=== PATIENT | male | born 1955 | race Caucasian/White ===

== ENCOUNTER 2017-09-20 08:19 | Emergency (ER) | payer BC ==
[2017-09-20] MEDS ORDERED: METHYLPREDNISOLONE PF 125MG/VIAL IVP ONE (09:16)
[2017-09-20 09:17] LABS: HEMATOCRIT 30.3 % (42.0-52.0); HEMOGLOBIN 9.4 gm/dl (14.0-18.0); MEAN CELL VOLUME 81.2 fl (81-97); MEAN CORPUSCULAR HEMOGLOBIN 25.2 pg (27-33); MEAN PLATELET VOLUME 8.4 fl (7.4-10.4); PLATELET COUNT 441 K/uL (130-400); RED BLOOD COUNT 3.73 M/uL (4.40-5.70); RED CELL DISTRIBUTION WIDTH 14.8 % (11.5-14.5)
[2017-09-20 09:38] LABS: ALB/GLOB RATIO 1.3 (1.1-1.8); ALKALINE PHOSPHATASE 59 U/L (40-129); ALT/SGPT 7 U/L (<41); AST/SGOT 10 U/L (10.0-50.0); BLOOD UREA NITROGEN 16 mg/dL (8-23); CREATININE 0.9 mg/dL (0.7-1.2); EST GLOMERULAR FILTRATION RATE > 60 mL/min; GLUCOSE,RANDOM 190 mg/dL (74-109); TOTAL PROTEIN 7.2 g/dL (6.6-8.7)
[2017-09-20] MEDS ORDERED: FUROSEMIDE IV 20MG/2ML VIAL IVP ONE (09:42)
[2017-09-20] MEDS ORDERED: ONDANSETRON HCL IV 4 MG/2 ML VIAL IVP ONE (10:38)
--- NOTE | 2017-09-20 10:45 | Emergency Department Record ---
History of Present Illness - General Chief Complaint: Difficulty Breathing Stated Complaint: VIKY Time Seen by Provider: 09/20/17 08:43 Source: Patient Mode of Arrival: Ambulatory Limitations: No limitations - History of Present Illness Initial Comments: pt has known lung ca and is increasingly sob. it gets worse when he lays down Complaint: Cough, Shortness of breath Onset/Timin -: Days(s) Severity: Moderate Severity scale (1-10): 1 Quality: Aching Consistency: Getting worse Improves With: Oxygen Worsens With: Lying flat Known History Of: Other Associated Symptoms: Cough, Orthopnia Treatments Prior to Arrival: Bronchodilator - Related Data Home Medications Medication Instructions Recorded Confirmed Last Taken Canabis Oil 1 cap PO QPM 09/20/17 09/20/17 09/19/17 Ipratropium/Albuterol Sulfate 1 puff INH QID PRN 09/20/17 09/20/17 09/20/17 [Combivent] Allergies Allergy/AdvReac Type Severity Reaction Status Date / Time Penicillins Allergy BEHAVIORAL Verified 09/20/17 08:34 CHANGES Travel Screening - Travel/Exposure Within Last 30 Days Have you traveled within the last 30 days?: No - Travel/Exposure Within Last Year Have you traveled outside the [place] in the last year?: No - Additonal Travel Details Have you been exposed to anyone with a communicable illness?: No - Travel Symptoms Symptom Screening: None Review of Systems Reviewed: No additional complaints except as noted below Constitutional: Reports: As per HPI. Denies: Chills, Fever, Malaise, Night sweats, Weakness, Weight change Eyes: Reports: As per HPI. Denies: Eye discharge, Eye pain, Photophobia, Vision change ENT: Reports: As per HPI. Denies: Congestion, Dental pain, Ear pain, Epistaxis , Hearing loss, Throat pain Respiratory: Reports: As per HPI, Cough, Dyspnea. Denies: Hemoptysis, Stridor, Wheezes Cardiovascular: Reports: As per HPI. Denies: Arrhythmia, Chest pain, Dyspnea on exertion, Edema, Murmurs, Orthopnea, Palpitations, Paroxysmal nocturnal dyspnea, Rheumatic Fever, Syncope Endocrine: Reports: As per HPI. Denies: Fatigue, Heat or cold intolerance, Polydipsia, Polyuria Gastrointestinal: Reports: As per HPI. Denies: Abdominal pain, Constipation, Diarrhea, Hematemesis, Hematochezia, Melena, Nausea, Vomiting Genitourinary: Reports: As per HPI. Denies: Dysuria, Frequency, Hematuria, Incontinence, Retention, Testicular pain, Testicular mass, Urgency Musculoskeletal: Reports: As per HPI. Denies: Arthralgia, Back pain, Gout, Joint swelling, Myalgia, Neck pain Skin: Reports: As per HPI. Denies: Bruising, Change in color, Change in hair/ nails, Lesions, Pruritus, Rash Neurological: Reports: As per HPI. Denies: Abnormal gait, Confusion, Headache, Numbness, Paresthesias, Seizure, Tingling, Tremors, Vertigo, Weakness Psychiatric: Reports: As per HPI. Denies: Anxiety, Auditory hallucinations, Depression, Homicidal thoughts, Suicidal thoughts, Visual hallucinations Hematological/Lymphatic: Reports: As per HPI. 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 negative: External canal tenderness Nasal Exam: Normal inspection. negative: Discharge, Sinus tenderness Mouth exam: Normal external inspection, Tongue normal Teeth exam: Normal inspection. negative: Dental caries Throat exam: Normal inspection. negative: Tonsillar erythema, Tonsillar exudate - Neck Neck exam: Normal inspection, Full ROM. negative: Tenderness - Respiratory Respiratory exam: Accessory muscle use, Respiratory distress - Cardiovascular Cardiovascular Exam: Regular rate, Normal rhythm, Normal heart sounds - GI/Abdominal GI/Abdominal exam: Soft, Normal bowel sounds. negative: Tenderness - Rectal Rectal exam: Deferred - exam: Deferred - Extremities Extremities exam: Normal inspection, Full ROM, Normal capillary refill. negative: Tenderness - Back Back exam: Reports: Normal inspection, Full ROM. 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 ] Respiratory 20 26 H 28 H Rate Blood Pressure 181/94 Blood Pressure 195/118 127/98 [Left Arm] Pulse Ox 100 98 100 Medical Decision Making - Lab Data Result diagrams: 09/20/17 09:10 09/20/17 09:10 Lab Results 09/20/17 09/20/17 09/20/17 Range/Units 09:10 09:10 09:16 WBC 7.0 (4.2-12.2) K/uL RBC 3.73 L (4.40-5.70) M/uL Hgb 9.4 L (14.0-18.0) gm/dl Hct 30.3 L (42.0-52.0) % MCV 81.2 (81-97) fl MCH 25.2 L (27-33) pg MCHC 31.0 L (32-36) g/dl RDW 14.8 H (11.5-14.5) % Plt Count 441 H (130-400) K/uL MPV 8.4 (7.4-10.4) fl Neutrophils % 83.0 H (47-80) % Band Neutrophils % 0.0 (0-5) % Eosinophils % Not Reportable Basophils % Not Reportable Lymphocytes 11.0 L (16-45) % Monocytes 4.0 (0-9) % Basophils 0.0 (0-6) % Eosinophil Count 2.0 (0-6) % Sodium 135 L (136-145) mmol/L Potassium 4.2 (3.4-4.5) mmol/L Chloride 91 L (98-107) mmol/L Carbon Dioxide 21.0 L (22-29) mmol/L Anion Gap 23.0 H (7-16) BUN 16 (8-23) mg/dL Creatinine 0.9 (0.7-1.2) mg/dL Estimated GFR > 60 mL/min Random Glucose 190 H (74-109) mg/dL Calcium 9.8 (8.8-10.2) mg/dL Total Bilirubin 0.60 (0.2-1.0) mg/dL AST 10 (10.0-50.0) U/L ALT 7 (<41) U/L Alkaline Phosphatase 59 (40-129) U/L Troponin T < 0.010 (0-0.010) ng/mL NT-Pro-B Natriuret Pep 7078.00 H (<125) pg/mL Total Protein 7.2 (6.6-8.7) g/dL Albumin 4.0 (4.0-5.0) g/dL Globulin 3.2 (1.4-4.8) gm/dL Albumin/Globulin Ratio 1.3 (1.1-1.8) Disposition Disposition: Transfer Clinical Impression: Airway obstruction Lung cancer Qualifiers: Laterality: right Lung location: unspecified part of lung Qualified Code(s): C34.91 - Malignant neoplasm of unspecified part of right bronchus or lung Disposition: Acute Care Hospital Transfer Transfer To: formerly [facility] Reason For Transfer: pts physicians, airway obstruction Accepting Physician: rusty Time Discussed w/Accepting Physician: 12:10 Forms: Patient Portal Access Quality - Quality Measures Quality Measures: N/A - Blood Pressure Screening Does Patient Have Any of the Following: No Blood Pressure Classification: Hypertensive Reading Systolic Measurement: 181 Diastolic Measurement: 94 Screening for High Blood Pressure: < First Hypertensive BP, F/U Documented > [ [id number]] First Hypertensive Follow-up Interventions: Follow-up with rescreen GT 1 day and LT 4 weeks.
--- NOTE | 2017-09-21 10:25 | CT ANGIOGRAM REPORT ---
DATE: 09/20/2017 at 10:18 a.m. EXAM: CT ANGIOGRAM OF THE CHEST FOR PULMONARY EMBOLUS WITH POSTPROCESSING. HISTORY: Shortness of breath. Possible pulmonary embolus. TECHNIQUE: CTA of the chest performed following the intravenous administration of 60 mL of Omnipaque 350 as the intravenous contrast. Postprocessing on an independent work station was performed with multiple 3D MIP series obtained. COMPARISON: None. FINDINGS: No definite pulmonary embolus identified. There is some ectasia of the ascending aorta with a maximum diameter of about 3.8 cm. The descending thoracic aorta is not dilated. No dissection evident. There is probably some pericardial fluid along the right side of the heart inferiorly. Heart size itself appears within normal limits. There does appear to be a large mass engulfing the right hilum and extending up superiorly along the right side of the superior mediastinum. This mass causes considerable narrowing of the distal aspect of the right main pulmonary artery as well as proximal first-order branches extending through the mass. 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 This mass measures approximately 5.6 cm in AP x 3.0 cm in transverse diameters. There is considerable spiculation about the lateral border of the mass with the spicules extending out into the lung in the upper lobe and also the superior segment of the right lower lobe medially. Tiny bullae throughout the lungs consistent with extensive underlying emphysema. Slight fullness of both adrenal glands which is nonspecific; although early adrenal metastases cannot be excluded. There are very small bilateral pleural effusions today. There is also a pleural-based nodule in the right lower lobe seen in image 180 of 307 measuring about 6.8 mm in size. This is indeterminate , and a small metastasis cannot be excluded. Note is made that the upper esophagus is somewhat dilated leading to the level of the mass which probably engulfs the esophagus and may be causing some narrowing of the esophagus. There is also a mildly enlarged upper left-sided mediastinal lymph node located between the trachea and esophagus, probably metastatic. IMPRESSION: 1. NO DEFINITE PULMONARY EMBOLUS IDENTIFIED. 2. EXTENSIVE MASS ENGULFING THE RIGHT HILUM AND EXTENDING UP ALONG THE RIGHT SIDE OF THE SUPERIOR MEDIASTINUM, PRESUMABLY REPRESENTING EXTENSIVE MALIGNANCY. THIS CAUSES NARROWING OF THE DISTAL ASPECT OF THE RIGHT MAIN PULMONARY ARTERY AND PROXIMAL ASPECT OF THE FIRST-ORDER BRANCHES, AND THE SPICULATED RIGHT LATERAL MARGIN OF THIS MASS EXTENDS INTO THE ADJACENT RIGHT UPPER LOBE AND SUPERIOR SEGMENT OF THE RIGHT LOWER LOBE. 3. SMALL BILATERAL PLEURAL EFFUSIONS. 4. INDETERMINATE 6.8 MM NODULE IN SUBPLEURAL LOCATION IN THE RIGHT LOWER LOBE POSTEROLATERALLY. 5. ENLARGED UPPER LEFT PARATRACHEAL LYMPH NODE PRESUMABLY METASTATIC. 6. UNDERLYING EMPHYSEMA. 7. SLIGHT FULLNESS OF BOTH ADRENALS AND EARLY ADRENAL METASTASES CANNOT BE EXCLUDED. 8. SOME ECTASIA OF THE ASCENDING AORTA. 9. SOME MILD DILATATION OF THE UPPER ESOPHAGUS LEADING TO THE LEVEL OF THE MASS AND SOME INVASION OF THE ESOPHAGUS LEADING TO SOME NARROWING OF THE ESOPHAGUS IN THIS REGION CANNOT BE EXCLUDED. JOB NUMBER: [id number] MTDD
== END 2017-09-20 12:57 | disposition short-term general hospital (02) ==
LOC: ER 08:19
DX: J98.8 Other specified respiratory disorders (principal); R06.02 Shortness of breath; C34.91 Malignant neoplasm of unspecified part of right bronchus or lung; J44.9 Chronic obstructive pulmonary disease, unspecified; Z87.891 Personal history of nicotine dependence
CPT/HCPCS: 71275; 80053; 83880; 84484; 85027; 96374; 96375; 99285; J1940; J2405; J2930